=== PATIENT | male | born 2000 | race Caucasian/White ===

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

== ENCOUNTER 2021-12-04 15:33 | Day surgery (SDC) | payer BC ==
[2021-12-04] MEDS ORDERED: Bupivacaine 0.25% 10 ML VIAL ONE (16:14)
[2021-12-04] MEDS ORDERED: Fentanyl 100 MCG/2 ML VIAL ONE (16:57)
[2021-12-04] MEDS ORDERED: SUGAMMADEX SODIUM 200 MG/2 ML VIAL ONE (16:57)
[2021-12-04] MEDS ORDERED: Famotidine/PF 20 mg/2ml Vial ONE (16:57)
[2021-12-04] MEDS ORDERED: cefOXitin 2 GM VIAL ONE (17:01)
[2021-12-04] MEDS ORDERED: Glycopyrrolate 0.2 MG/ML 5 ML SYRINGE ONE (17:14)
[2021-12-04] MEDS ORDERED: Lidocaine 1% PF 5 ML VIAL ONE (17:14)
[2021-12-04] MEDS ORDERED: PROPOFOL 200 MG/20 ML VIAL ONE (17:14)
[2021-12-04] MEDS ORDERED: ePHEDrine 50 MG/ML VIAL ONE (17:14)
[2021-12-04] MEDS ORDERED: Ondansetron PF 4 MG/2 ML Vial ONE (17:14)
[2021-12-04] MEDS ORDERED: Rocuronium Bromide 10 MG/ML (10ML VIAL) ONE (17:14)
[2021-12-04] MEDS ORDERED: Dexamethasone 20 MG/5 ML VIAL ONE (17:14)
[2021-12-04] MEDS ORDERED: Succinylcholine 200 MG/10 ml SYRINGE FS ONE (17:14)
[2021-12-04] MEDS ORDERED: Ketorolac Tromethamine 30 MG/ML VIAL ONE (17:14)
[2021-12-04] MEDS ORDERED: HYDROcodone/Acetaminophen 5/325 mg Tablet ONE (18:50)
== END 2021-12-04 19:28 | disposition home or self-care (01) ==
LOC: SDC 15:33
PROVIDERS: ATTEND Specialist
PROC: 0DTJ4ZZ Resection of Appendix, Percutaneous Endoscopic Approach (ICD-10-PCS; principal; 2021-12-04)
DX: K35.80 Unspecified acute appendicitis (principal); K66.0 Peritoneal adhesions (postprocedural) (postinfection)
CPT/HCPCS: 88304; A4649; J0694; J1100; J1885; J2405; J2704; J3010; J3490; S0020; S0028